=== PATIENT | female | born 1995 | race American Indian/Alaskan Native ===

== ENCOUNTER 2020-04-06 16:03 | Emergency (ER) | payer SELFPAY ==
--- NOTE | 2020-04-06 17:15 | Event Note ---
ED Screening Note Date of service: 04/06/20 Time: 17:13 ED Screening Note: Pt c/o dizziness and KERN x today with vaginal bleeding x 2 months denies hx of uterine using 3 pads a day denies past medical hx This initial assessment/diagnostic orders/clinical plan/treatment(s) is/are subject to change based on patients health status, clinical progression and re- assessment by fellow clinical providers in the ED. Further treatment and workup at subsequent clinical providers discretion. Patient/guardian urged not to elope from the ED as their condition may be serious if not clinically assessed and managed. Initial orders include: labs
[2020-04-06 17:38] LABS: Bacteria,Urine 1+ /HPF (Negative); Bilirubin,Urine NEG (Negative); Blood,Urine LG (Negative); Color,Urine Yellow (Yellow); Mucus,Urine 1+ /HPF; Urobilinogen,Urine < 2.0 mg/dL (<2.0)
[2020-04-06 17:39] LABS: RBC,Urine > 182.0 /HPF (0.0-6.0)
[2020-04-06 17:53] LABS: Basophils # (Auto) 0.1 K/mm3 (0.0-0.1); Basophils % (Auto) 0.8 % (0.0-1.8); Eosinophils # (Auto) 0.2 K/mm3 (0.0-0.4); Eosinophils % (Auto) 2.5 % (0.0-4.3); Hematocrit 38.8 % (30.3-42.9); Hemoglobin 12.7 gm/dl (10.1-14.3); Lymphocytes # (Auto) 3.6 K/mm3 (1.2-5.4); Lymphocytes % (Auto) 40.4 % (13.4-35.0); Mean Corpuscular HGB Conc 33 % (30-34); Mean Corpuscular Volume 86 fl (79-97); Monocytes # (Auto) 0.7 K/mm3 (0.0-0.8); Monocytes % (Auto) 7.6 % (0.0-7.3); Platelet Count 323 K/mm3 (140-440); Red Blood Count 4.49 M/mm3 (3.65-5.03); Red Cell Distribution Width 14.4 % (13.2-15.2)
[2020-04-06 18:02] LABS: Alanine Aminotransferase 12 units/L (7-56); Albumin 3.8 g/dL (3.9-5); Blood Urea Nitrogen 10 mg/dL (7-17); Hemolysis Index 3
[2020-04-06 18:03] LABS: Partial Thromboplastin Time 30.9 Sec. (24.2-36.6)
[2020-04-06 18:11] LABS: BUN/Creatinine Ratio 14
[2020-04-06 20:56] VITALS: BP 127/54
--- NOTE | 2020-04-07 00:15 | Ultrasound Report ---
ULTRASOUND PELVIS INDICATION / CLINICAL INFORMATION: left adnexa pain and vaginal bleeding. TECHNIQUE: Transabdominal and Transvaginal. Duplex Color Doppler used: Yes. COMPARISON: None available FINDINGS: UTERUS: The uterus measures 6.2 cm in length. There is a 2.3 x 2 x 1.3 cm heterogeneous structure in the body of the uterus with increased blood flow on the periphery. There is increased blood flow and measures approximately 7 mm.. The endometrial stripe measures 2 mm RIGHT ADNEXA: No significant ovarian cyst or mass. Normal color Doppler blood flow. The ovary measure s 4.5 cm in length LEFT ADNEXA: No significant ovarian cyst or mass. Normal color Doppler blood flow. The ovary measures 2.1 cm in length URINARY BLADDER: No significant abnormality. FREE FLUID: There is a minimal amount of free fluid in the cul-de-sac ADDITIONAL FINDINGS: None. IMPRESSION: 1. 2.3 cm heterogeneous structure in the body the uterus likely represents a fibroid with some increa sed vascularity in its periphery. 2. There is a minimal amount of free fluid in the cul-de-sac. Signer Name: Konstantin Burkett MD Signed: 04/07/2020 12:10 AM Workstation Name: [id number]
[2020-04-07] MEDS ORDERED: ACETAMINOPHEN 500 MG TAB PO ONE (00:30)
[2020-04-07] MEDS ORDERED: IBUPROFEN 800 MG TAB PO ONE (00:30)
--- NOTE | 2020-04-07 01:02 | Emergency Department Report ---
ED Female HPI - General Chief complaint: Vaginal Bleeding Stated complaint: VAG BLEEDING Time Seen by Provider: 04/06/20 17:12 Source: patient Mode of arrival: Ambulatory Limitations: No Limitations - History of Present Illness MD Complaint: vaginal bleeding, pelvic pain, possible STD -: Gradual, days(s) Location: suprapubic Radiation: suprapubic Severity: moderate Quality: dull, aching Consistency: constant Improves with: none Worsens with: none Are you Now?: No - Related Data Previous Rx's Medication Instructions Recorded Last Taken Type Azithromycin [Zithromax TAB] 1,000 mg PO ONCE #2 tablet 04/07/20 Unknown Rx Cefixime [Suprax] 400 mg PO ONCE #1 capsule 04/07/20 Unknown Rx Ketorolac [Toradol] 10 mg PO Q6H PRN #15 tablet 04/07/20 Unknown Rx metroNIDAZOLE [Flagyl] 2,000 mg PO ONCE #4 tablet 04/07/20 Unknown Rx Allergies Allergy/AdvReac Type Severity Reaction Status Date / Time No Known Allergies Allergy Unverified 04/06/20 17:21 ED Review of Systems ROS: Stated complaint: VAG BLEEDING Other details as noted in HPI Comment: All other systems reviewed and negative ED Past Medical Hx - Past Medical History Previous Medical History?: No - Surgical History Past Surgical History?: No - Social History Smoking Status: Never Smoker - Medications Home Medications: Home Medications Medication Instructions Recorded Confirmed Last Taken Type Azithromycin [Zithromax TAB] 1,000 mg PO ONCE #2 tablet 04/07/20 Unknown Rx Cefixime [Suprax] 400 mg PO ONCE #1 capsule 04/07/20 Unknown Rx Ketorolac [Toradol] 10 mg PO Q6H PRN #15 tablet 04/07/20 Unknown Rx metroNIDAZOLE [Flagyl] 2,000 mg PO ONCE #4 tablet 04/07/20 Unknown Rx ED Physical Exam - General Limitations: No Limitations General appearance: alert, in no apparent distress - Head Head exam: Present: atraumatic, normocephalic - Eye Eye exam: Present: normal appearance, PERRL, EOMI Pupils: Present: normal accommodation - ENT ENT exam: Present: mucous membranes moist - Neck Neck exam: Present: normal inspection - Respiratory Respiratory exam: Present: normal lung sounds bilaterally. Absent: respiratory distress - Cardiovascular Cardiovascular Exam: Present: regular rate, normal rhythm. Absent: systolic murmur, diastolic murmur, rubs, gallop - GI/Abdominal GI/Abdominal exam: Present: soft, tenderness (Suprapubic area with palpation.), normal bowel sounds - Extremities Exam Extremities exam: Present: normal inspection - Back Exam Back exam: Present: normal inspection - Neurological Exam Neurological exam: Present: alert, oriented X3 - Psychiatric Psychiatric exam: Present: normal affect, normal mood - Skin Skin exam: Present: warm, dry, intact, normal color. Absent: rash ED Course Vital Signs 04/06/20 04/06/20 17:14 20:55 Temperature 98.5 F Pulse Rate 93 H 84 Respiratory 18 14 Rate Blood Pressure 157/92 Blood Pressure 127/54 [Left] O2 Sat by Pulse 100 99 Oximetry ED Medical Decision Making - Lab Data Result diagrams: 04/06/20 17:28 04/06/20 17:28 Lab Results 04/06/20 04/06/20 04/06/20 Range/Units 17:28 17:28 17:28 WBC 8.8 (4.5-11.0) K/mm3 RBC 4.49 (3.65-5.03) M/mm3 Hgb 12.7 (10.1-14.3) gm/dl Hct 38.8 (30.3-42.9) % MCV 86 (79-97) fl MCH 28 (28-32) pg MCHC 33 (30-34) % RDW 14.4 (13.2-15.2) % Plt Count 323 (140-440) K/mm3 Lymph % (Auto) 40.4 H (13.4-35.0) % Ramsey % (Auto) 7.6 H (0.0-7.3) % Eos % (Auto) 2.5 (0.0-4.3) % Baso % (Auto) 0.8 (0.0-1.8) % Lymph # (Auto) 3.6 (1.2-5.4) K/mm3 Ramsey # (Auto) 0.7 (0.0-0.8) K/mm3 Eos # (Auto) 0.2 (0.0-0.4) K/mm3 Baso # (Auto) 0.1 (0.0-0.1) K/mm3 Seg Neutrophils % 48.7 (40.0-70.0) % Seg Neutrophils # 4.3 (1.8-7.7) K/mm3 PT 13.4 (12.2-14.9) Sec. INR 1.00 (0.87-1.13) APTT 30.9 (24.2-36.6) Sec. Sodium 137 (137-145) mmol/L Potassium 4.0 (3.6-5.0) mmol/L Chloride 100.1 (98-107) mmol/L Carbon Dioxide 28 (22-30) mmol/L Anion Gap 13 mmol/L BUN 10 (7-17) mg/dL Creatinine 0.7 (0.6-1.2) mg/dL Estimated GFR > 60 ml/min BUN/Creatinine Ratio 14 % Glucose 81 (65-100) mg/dL Calcium 9.0 (8.4-10.2) mg/dL Total Bilirubin 0.30 (0.1-1.2) mg/dL AST 13 (5-40) units/L ALT 12 (7-56) units/L Alkaline Phosphatase 93 (35-129) units/L Total Protein 7.9 (6.3-8.2) g/dL Albumin 3.8 L (3.9-5) g/dL Albumin/Globulin Ratio 0.9 % HCG, Qual (Negative) Urine Color (Yellow) Urine Turbidity (Clear) Urine pH (5.0-7.0) Ur Specific [facility] (1.003-1.030) Urine Protein (Negative) mg/dL Urine Glucose (UA) (Negative) mg/dL Urine Ketones (Negative) mg/dL Urine Blood (Negative) Urine Nitrite (Negative) Urine Bilirubin (Negative) Urine Urobilinogen (<2.0) mg/dL Ur Leukocyte Esterase (Negative) Urine WBC (Auto) (0.0-6.0) /HPF Urine RBC (Auto) (0.0-6.0) /HPF U Epithel Cells (Auto) (0-13.0) /HPF Urine Bacteria (Auto) (Negative) /HPF Urine Mucus /HPF 04/06/20 04/06/20 Range/Units 17:28 Unknown WBC (4.5-11.0) K/mm3 RBC (3.65-5.03) M/mm3 Hgb (10.1-14.3) gm/dl Hct (30.3-42.9) % MCV (79-97) fl MCH (28-32) pg MCHC (30-34) % RDW (13.2-15.2) % Plt Count (140-440) K/mm3 Lymph % (Auto) (13.4-35.0) % Ramsey % (Auto) (0.0-7.3) % Eos % (Auto) (0.0-4.3) % Baso % (Auto) (0.0-1.8) % Lymph # (Auto) (1.2-5.4) K/mm3 Ramsey # (Auto) (0.0-0.8) K/mm3 Eos # (Auto) (0.0-0.4) K/mm3 Baso # (Auto) (0.0-0.1) K/mm3 Seg Neutrophils % (40.0-70.0) % Seg Neutrophils # (1.8-7.7) K/mm3 PT (12.2-14.9) Sec. INR (0.87-1.13) APTT (24.2-36.6) Sec. Sodium (137-145) mmol/L Potassium (3.6-5.0) mmol/L Chloride (98-107) mmol/L Carbon Dioxide (22-30) mmol/L Anion Gap mmol/L BUN (7-17) mg/dL Creatinine (0.6-1.2) mg/dL Estimated GFR ml/min BUN/Creatinine Ratio % Glucose (65-100) mg/dL Calcium (8.4-10.2) mg/dL Total Bilirubin (0.1-1.2) mg/dL AST (5-40) units/L ALT (7-56) units/L Alkaline Phosphatase (35-129) units/L Total Protein (6.3-8.2) g/dL Albumin (3.9-5) g/dL Albumin/Globulin Ratio % HCG, Qual Negative (Negative) Urine Color Yellow (Yellow) Urine Turbidity Clear (Clear) Urine pH 5.0 (5.0-7.0) Ur Specific [facility] [place] 1.021 (1.003-1.030) Urine Protein 30 mg/dl (Negative) mg/dL Urine Glucose (UA) Neg (Negative) mg/dL Urine Ketones Neg (Negative) mg/dL Urine Blood Lg (Negative) Urine Nitrite Neg (Negative) Urine Bilirubin Neg (Negative) Urine Urobilinogen < 2.0 (<2.0) mg/dL Ur Leukocyte Esterase Neg (Negative) Urine WBC (Auto) 1.0 (0.0-6.0) /HPF Urine RBC (Auto) > 182.0 (0.0-6.0) /HPF U Epithel Cells (Auto) 4.0 (0-13.0) /HPF Urine Bacteria (Auto) 1+ (Negative) /HPF Urine Mucus 1+ /HPF - Radiology Data Radiology results: report reviewed Referring Physician:LISA KAMPatient Name:VAISHNAVI BULLOCKPatient ID:[id number] of :[id number]:FemaleAccession:[id number] Date:5-23-80Padmmf Status:Finalized Findings [facility] [address] [place] [address] Ultrasound Report Signed Patient: VAISHNAVI BULLOCK MR#: [id number] : 1995 Acct:[id number] Age/Sex: 24 / F ADM Date: 04/06/20 Loc: ED Attending Dr: Ordering Physician: GLORY BENITEZ Date of Service: 04/06/20 Procedure(s): US pelvic complete Accession Number(s): [id number] cc: GLORY BENITEZ ULTRASOUND PELVIS INDICATION / CLINICAL INFORMATION: left adnexa pain and vaginal bleeding. TECHNIQUE: Transabdominal and Transvaginal. Duplex Color Doppler used: Yes. COMPARISON: None available FINDINGS: UTERUS: The uterus measures 6.2 cm in length. There is a 2.3 x 2 x 1.3 cm heterogeneous structure in the body of the uterus with increased blood flow on the periphery. There is increased blood flow and measures approximately 7 mm.. The endometrial stripe measures 2 mm RIGHT ADNEXA: No significant ovarian cyst or mass. Normal color Doppler blood flow. The ovary measures 4.5 cm in length LEFT ADNEXA: No significant ovarian cyst or mass. Normal color Doppler blood flow. The ovary measures 2.1 cm in length URINARY BLADDER: No significant abnormality. FREE FLUID: There is a minimal amount of free fluid in the cul-de-sac ADDITIONAL FINDINGS: None. IMPRESSION: 1. 2.3 cm heterogeneous structure in the body the uterus likely represents a fibroid with some increased vascularity in its periphery. 2. There is a minimal amount of free fluid in the cul-de-sac. Signer Name: Konstantin Burkett MD Signed: 04/07/2020 12:10 AM Workstation Name: [id number] Transcribed By: SS Dictated By: Konstantin Burkett MD Electronically Authenticated By: Konstantin Burkett MD Signed Date/Time: 04/07/20 0010 DD/ 0004 TD/TT: - Medical Decision Making Female presents emergency department with 3 days days of episodic vaginal bleeding most likely of a nonemergent etiology. Based on the history, examination, the ED work-up patient's presentation not consistent with an ectopic , molar , life threatening coagulopathy, serious bacterial infection, central process or other emergency. Patient's bleeding is most likely secondary to, fibroids, or the nonemergent cause of abnormal uterine bleeding. No vaginal tears were appreciated on examination Disposition: We will discharge home with return precautions and instructions for prompt [employer] follow-up Critical care attestation.: If time is entered above; I have spent that time in minutes in the direct care of this critically ill patient, excluding procedure time. ED Disposition Clinical Impression: Leiomyoma Disposition: DC-01 TO HOME OR SELFCARE Is pt being admited?: No Does the pt Need Aspirin: No Condition: Stable Instructions: Uterine Fibroids (ED), Sexually Transmitted Diseases (ED), Safe Sex (ED) Prescriptions: metroNIDAZOLE [Flagyl] 2,000 mg PO ONCE #4 tablet Cefixime [Suprax] 400 mg PO ONCE #1 capsule Ketorolac [Toradol] 10 mg PO Q6H PRN #15 tablet PRN Reason: Pain Azithromycin [Zithromax TAB] 1,000 mg PO ONCE #2 tablet Referrals: PRIMARY CARE, [Primary Care Provider] - 3-5 Days Forms: Work/School Release Form(ED)
--- NOTE | 2020-04-07 01:51 | Ultrasound Report ---
ULTRASOUND PELVIS INDICATION / CLINICAL INFORMATION: left adnexa pain and vaginal bleeding. TECHNIQUE: Transabdominal and Transvaginal. Duplex Color Doppler used: Yes. COMPARISON: None available FINDINGS: UTERUS: The uterus measures 6.2 cm in length. There is a 2.3 x 2 x 1.[address] ucture in the body of the uterus with increased blood flow on the periphery. There is increased blood flow and measures approximately 7 mm.. The endometrial stripe measures 2 mm RIGHT ADNEXA: No significant ovarian cyst or mass. Normal color Doppler blood flow. The ovary measur es 4.5 cm in length LEFT ADNEXA: No significant ovarian cyst or mass. Normal color Doppler blood flow. The ovary measure s 2.1 cm in length URINARY BLADDER: No significant abnormality. FREE FLUID: There is a minimal amount of free fluid in the cul-de-sac ADDITIONAL FINDINGS: None. IMPRESSION: 1. 2.3 cm heterogeneous structure in the body the uterus likely represents a fibroid with some increa sed vascularity in its periphery. 2. There is a minimal amount of free fluid in the cul-de-sac. Signer Name: Konstantin Burkett MD Signed: 04/07/2020 1:46 AM Workstation Name: [id number]
== END 2020-04-07 01:15 | disposition home or self-care (01) ==
LOC: ED 16:03
DX: D21.9 Benign neoplasm of connective and other soft tissue, unspecified (principal); Z79.899 Other long term (current) drug therapy
CPT/HCPCS: 36415; 76830; 76856; 80053; 81001; 84703; 85025; 85610; 85730